=== PATIENT | male | born 1985 | race Two or more races ===

== ENCOUNTER 2024-10-22 15:00 | Outpatient (CLI) | payer OTHER | END 2024-10-22 15:09 | disposition home or self-care (01) | LOC: SONOGRAMA 15:00 | PROVIDERS: ATTEND General Practice | DX: D48.62 Neoplasm of uncertain behavior of left breast (principal) ==

== ENCOUNTER 2024-10-29 07:09 | Outpatient (CLI) | payer OTHER | END 2024-10-29 07:18 | disposition home or self-care (01) | LOC: SONOGRAMA 07:09 | PROVIDERS: ATTEND General Practice | DX: K76.0 Fatty (change of) liver, not elsewhere classified (principal); R74.01 Elevation of levels of liver transaminase levels ==